=== PATIENT | male | born 1965 | race Caucasian/White ===

== ENCOUNTER 2017-03-24 09:00 | Observation (INO) | payer OTHER ==
[~2017-03-24] VITALS: Ht 177.8 cm; Wt 82.7 kg
[2017-03-24 09:48] LABS: EOSINOPHIL (%) 1.6 % (0-5); EOSINOPHIL COUNT 0.1 K/uL (0-0.3); HEMATOCRIT 48.4 % (38.0-50.0); IMMATURE GRANULOCYTE (%) 0.5 % (0.0-0.7); INSTRUMENT ABS NEUTROPHIL CT 4.7 K/uL; LYMPHOCYTE COUNT 1.9 K/uL (1.0-2.8); MCH 32.9 PG (29.0-34.0); MCHC 36.4 G/DL (30.0-36.0); MCV 90.5 FL (86-99); MEAN PLAT.VOLUME 11.5 uM^3 (9.0-12.4); MONOCYTE (%) 9.3 % (3-12); MONOCYTE COUNT 0.7 K/uL (0-0.8); NEUTROPHIL (%) 62.8 % (45-76); NEUTROPHIL COUNT 4.7 K/uL (1.8-6.4); PLATELET COUNT 163 K/uL (156-360); RBC DIS.WIDTH-CV 11.7 % (11.8-14.6); RBC DIS.WIDTH-SD 38.9 % (39-53); RED BLOOD COUNT 5.35 M/uL (4.00-5.50); WHITE BLOOD COUNT 7.4 K/uL (4.1-10.2)
[2017-03-24 09:54] LABS: PROTHROMBIN TIME 10.9 SEC (10.2-12.9)
[2017-03-24 09:57] LABS: PTT 30.1 SEC (25-37)
[2017-03-24 10:09] LABS: CHLORIDE 109 mEq/L (99-109); SODIUM 141 mEq/L (136-147)
[2017-03-24 10:11] LABS: GLUCOSE 109 mg/dL (70-99)
[2017-03-24 10:20] LABS: ANION GAP 14 MEQ/L (2-14); GFR ESTIMATE (CALCULATED) > 59 mL/min/; TROP-I INTERPRETATION NEGATIVE; TROPONIN-I < 0.01 ng/mL (0.0-0.30); UREA NITROGEN (BUN) 12 mg/dL (9-23)
[2017-03-24] MEDS ORDERED: DEPO-TESTOS200 MG/ML IM (11:30)
[2017-03-24] MEDS ORDERED: ARIMIDEX1 MG PO (11:31)
[2017-03-24] MEDS ORDERED: FLONASE16 G1 BOTH NARES (11:31)
[2017-03-24] MEDS ORDERED: SYNTHROID25 MCG PO (11:31)
[2017-03-24] MEDS ORDERED: CO Q-1010 MG PO (11:32)
[2017-03-24] MEDS ORDERED: ZYLOPRIM100 MG PO (11:32)
[2017-03-24] MEDS ORDERED: MILK THISTLE500 MG PO (11:33)
[2017-03-24] MEDS ORDERED: VISINE A.C300 DROP/1 BOTH EYES (11:34)
[2017-03-24] MEDS ORDERED: ADVIL200 MG PO (11:34)
[2017-03-24] MEDS ORDERED: ALEVE220 MG PO (11:34)
[2017-03-24] MEDS ORDERED: BACTROBAN OINTM22 GM NS (11:35)
[2017-03-24] MEDS ORDERED: BUDESONIDE0.25 MG/2 NS (11:36)
[2017-03-24] MEDS ORDERED: [UNRECOGNIZED DRUG - OTHER] PO (11:40)
[2017-03-24] MEDS ORDERED: TURMERIC PO (11:42)
[2017-03-24 12:10] LABS: TROP-I INTERPRETATION NEGATIVE; TROPONIN-I < 0.01 ng/mL (0.0-0.30)
[2017-03-24 12:17] VITALS: BP 143/97
[2017-03-24 12:29] LABS: HDL CHOLESTEROL 36 MG/DL (Desirable>=40); NON-HDL CHOLESTEROL 174 mg/dL (Desirable<160); TOTAL CHOLESTEROL 210 mg/dL (Desirable<200); TRIGLYCERIDES 408 MG/DL (Normal: <150)
[2017-03-24 12:38] VITALS: BP 143/97
[2017-03-24 16:06] VITALS: BP 126/85
[2017-03-24 17:52] LABS: TROP-I INTERPRETATION NEGATIVE; TROPONIN-I < 0.01 ng/mL (0.0-0.30)
[2017-03-24 20:20] VITALS: BP 108/74
[2017-03-25 00:51] VITALS: BP 124/74
[2017-03-25 07:36] VITALS: BP 125/83
[2017-03-25] MEDS ORDERED: DILTIAZEM 24HR180 MG PO (11:49)
[2017-03-25] MEDS ORDERED: ELIQUIS5 MG PO (11:50)
== END 2017-03-25 13:08 | disposition home or self-care (01) ==
LOC: EME 09:00 → 4EAST 11:17 → EDOF 11:17 → 4EAST 11:17 → ENRESERV 11:23 → 4EAST 12:07
PROVIDERS: Emergency Medicine; Hospitalist
DX: I48.1 Persistent atrial fibrillation (principal); G47.33 Obstructive sleep apnea (adult) (pediatric); E23.0 Hypopituitarism; E03.9 Hypothyroidism, unspecified; E78.5 Hyperlipidemia, unspecified; E78.2 Mixed hyperlipidemia; R03.0 Elevated blood-pressure reading, without diagnosis of hypertension; Z79.890 Hormone replacement therapy; F17.200 Nicotine dependence, unspecified, uncomplicated; Z72.89 Other problems related to lifestyle; G47.30 Sleep apnea, unspecified; M10.9 Gout, unspecified; Z86.19 Personal history of other infectious and parasitic diseases; J32.9 Chronic sinusitis, unspecified; Z82.49 Family history of ischemic heart disease and other diseases of the circulatory system; Z80.0 Family history of malignant neoplasm of digestive organs
CPT/HCPCS: 71010; 80048; 80061; 83735; 84443; 84484; 85025; 85610; 85730; 93005; 93306; 99281; 99285; G0378; J1650